=== PATIENT | male | born 1985 | race Two or more races ===

== ENCOUNTER 2022-12-18 14:56 | Emergency (ER) | payer OTHER ==
[~2022-12-18] VITALS: Ht 177.8 cm; Wt 114.8 kg
[2022-12-18 15:15] LABS: Urine WBC None Seen /hpf (0 - 3)
[2022-12-18 15:32] LABS: Urine Bacteria NONE SEEN /hpf (None Seen); Urine Blood Negative /uL (Negative); Urine Clarity Clear (Clear); Urine Color Yellow (Yellow); Urine Hyaline Cast FEW /lpf (0 - 2); Urine Mucus FEW (None Seen); Urine Protein, UAD 1+ (Negative); Urine Specific Gravity 1.018 (1.001-1.035)
[2022-12-18 15:42] LABS: Basophils # (auto) 0 10 ^3/uL (0-0.2); Basophils % (auto) 0.7 % (0.0-2.0); Eosinophils # (auto) 0.1 10 ^3/uL (0-0.8); Hematocrit 39.8 % (41.0-53.0); Hemoglobin 13.3 g/dL (13.5-17.5); Lymphocytes # (auto) 1.2 10 ^3/uL (0.4-5.4); Lymphocytes % (auto) 18.6 % (10.0-50.0); Mean Corpuscular Hemoglobin 27.8 pg (28.0-32.0); Mean Corpuscular Hgb Conc. 33.5 g/dL (32.0-36.0); Monocytes # (auto) 0.8 10 ^3/uL (0-1.3); Monocytes % (auto) 12.2 % (0.0-12.0); Neutrophils # (auto) 4.4 10 ^3/uL (1.6-8.6); Neutrophils % (auto) 67.5 % (37.0-80.0); Nucleated Red Blood Cells % 0.2 %; Red Cell Distribution Width 14.9 % (11.8-14.3); White Blood Cell 6.5 10^3/uL (4.4-10.8)
[2022-12-18 15:53] VITALS: BP 127/43; PULSE 103; RESP 18; TEMP 98.3; O2SAT 95
[2022-12-18 16:03] LABS: Alanine Aminotransferase 34 U/L (7-40); Albumin 4.2 g/dL (3.2-4.8); Alkaline Phosphatase 80 U/L (46-116); Anion Gap 11 (5-15); Aspartate Aminotransferase 21 U/L (13-40); Bilirubin, Total 1.2 mg/dL (0.2-1.0); Calcium 9.3 mg/dL (8.7-10.4); Carbon Dioxide 26 mmol/L (20-30); Chloride 100 mmol/L (98-107); Glucose 99 mg/dL (74-106); Lipase 62 U/L (12-53); Potassium 3.7 mmol/L (3.5-5.1); Sodium 137 mmol/L (136-145); Total Protein 7.7 g/dL (5.7-8.2)
[2022-12-18 16:09] LABS: BUN/Creatinine Ratio 4.6 (10.0-20.0); Blood Urea Nitrogen < 5 mg/dL (9-23)
[2022-12-18] MEDS ORDERED: PANTOPRAZOLE 40 MG/10 ML VIAL INJ IV ONE (17:00)
[2022-12-18] MEDS ORDERED: SODIUM CHLORIDE 0.9% 1,000 ML IV ONE (17:00)
[2022-12-18] MEDS ORDERED: HYDROcodone-ACET 10/325MG TAB PO ONE (18:00)
== END 2022-12-18 18:06 | disposition home or self-care (01) ==
LOC: ER 14:56
DX: K80.20 Calculus of gallbladder without cholecystitis without obstruction (principal); E86.0 Dehydration; D35.01 Benign neoplasm of right adrenal gland
CPT/HCPCS: 36415; 74176; 80053; 81001; 83690; 85025; 96361; 96374; 99285; C9113; J7030

== ENCOUNTER 2022-12-23 14:53 | Inpatient (IN) | payer OTHER ==
[~2022-12-23] VITALS: Ht 177.8 cm; Wt 114.0 kg
[2022-12-23 01:33] VITALS: PULSE 72; RESP 19; O2SAT 98
[2022-12-23 15:27] LABS: Basophils # (auto) 0.1 10 ^3/uL (0-0.2); Basophils % (auto) 0.7 % (0.0-2.0); Eosinophils # (auto) 0.1 10 ^3/uL (0-0.8); Eosinophils % (auto) 0.8 % (0.0-7.0); Hematocrit 39.2 % (41.0-53.0); Hemoglobin 13.2 g/dL (13.5-17.5); Lymphocytes # (auto) 1.5 10 ^3/uL (0.4-5.4); Lymphocytes % (auto) 19.2 % (10.0-50.0); Mean Corpuscular Hgb Conc. 33.6 g/dL (32.0-36.0); Mean Corpuscular Volume 83.5 fL (80.0-100.0); Monocytes % (auto) 13.1 % (0.0-12.0); Neutrophils # (auto) 5.1 10 ^3/uL (1.6-8.6); Neutrophils % (auto) 66.2 % (37.0-80.0); Red Blood Cells 4.69 10^6/uL (4.5-5.90); Red Cell Distribution Width 14.9 % (11.8-14.3); White Blood Cell 7.7 10^3/uL (4.4-10.8)
[2022-12-23 15:31] LABS: Urine Bacteria NONE SEEN /hpf (None Seen); Urine Blood TRACE /uL (Negative); Urine Clarity Clear (Clear); Urine Color Yellow (Yellow); Urine Mucus FEW (None Seen); Urine Protein, UAD 1+ (Negative); Urine Specific Gravity 1.017 (1.001-1.035); Urine WBC 1 /hpf (0 - 3); Urine pH 6.5 (5.0-8.0)
[2022-12-23 15:46] LABS: Alanine Aminotransferase 30 U/L (7-40); Albumin 4.4 g/dL (3.2-4.8); Alkaline Phosphatase 87 U/L (46-116); Anion Gap 9 (5-15); Aspartate Aminotransferase 30 U/L (13-40); BUN/Creatinine Ratio 5.1 (10.0-20.0); Bilirubin, Total 1.3 mg/dL (0.2-1.0); Blood Urea Nitrogen 5 mg/dL (9-23); Calcium 9.6 mg/dL (8.7-10.4); Carbon Dioxide 28 mmol/L (20-30); Chloride 97 mmol/L (98-107); Glucose 98 mg/dL (74-106); Potassium 3.6 mmol/L (3.5-5.1); Sodium 134 mmol/L (136-145); Total Protein 8.4 g/dL (5.7-8.2)
[2022-12-23] MEDS ORDERED: IOHEXOL 300 MG/ML 100ML BOTTLE IJ ONE (17:49)
[2022-12-23] MEDS ORDERED: MORPHINE SULFATE 4 MG/ML SYR/VIAL IV ONE (19:45)
[2022-12-23] MEDS ORDERED: ONDANSETRON HCL 4 MG/2 ML VIAL IV ONE (19:45)
[2022-12-23] MEDS ORDERED: PANTOPRAZOLE 40 MG/10 ML VIAL INJ IV ONE (21:30)
[2022-12-23] MEDS ORDERED: SODIUM CHLORIDE 0.9% 1,000 ML IV ONE (21:30)
[2022-12-23] MEDS ORDERED: diphenhdrAMINE HCL 50 MG/1 ML VL IV ONE (21:45)
[2022-12-23] MEDS ORDERED: diphenhdrAMINE HCL 50 MG/1 ML VL ONE (21:47)
[2022-12-23] MEDS ORDERED: ONDANSETRON HCL 4 MG/2 ML VIAL IV PRN (22:15)
[2022-12-23] MEDS ORDERED: TEMAZEPAM 15 MG CAP PO PRN (22:15)
[2022-12-23] MEDS ORDERED: HYDROcodone-ACET 5/325MG TAB PO PRN (22:15)
[2022-12-23 22:55] VITALS: PULSE 82; RESP 21; O2SAT 90
[2022-12-24] VITALS (9 sets, daily range): BP systolic 105–121; BP diastolic 63–70; PULSE 72–82; RESP 16–19; TEMP 97.6–99.5; O2SAT 93–100
[2022-12-24] MEDS: diphenhdrAMINE HCL 25 MG CAP PO PRN ×2 (01:35→09:27)
[2022-12-24] MEDS ORDERED: HYDR-4798 PO (01:42)
[2022-12-24] MEDS: MORPHINE SULFATE INJ 2 MG/ml SYRG IV PRN ×3 (01:43→17:20)
[2022-12-24 05:54] LABS: Basophils # (auto) 0 10 ^3/uL (0-0.2); Basophils % (auto) 0.5 % (0.0-2.0); Eosinophils # (auto) 0.1 10 ^3/uL (0-0.8); Eosinophils % (auto) 1.9 % (0.0-7.0); Hematocrit 33.3 % (41.0-53.0); Hemoglobin 11.2 g/dL (13.5-17.5); Lymphocytes # (auto) 1.6 10 ^3/uL (0.4-5.4); Lymphocytes % (auto) 29.9 % (10.0-50.0); Mean Corpuscular Hemoglobin 27.9 pg (28.0-32.0); Mean Corpuscular Hgb Conc. 33.6 g/dL (32.0-36.0); Monocytes # (auto) 0.9 10 ^3/uL (0-1.3); Monocytes % (auto) 16.6 % (0.0-12.0); Neutrophils # (auto) 2.8 10 ^3/uL (1.6-8.6); Neutrophils % (auto) 51.1 % (37.0-80.0); Red Blood Cells 4.01 10^6/uL (4.5-5.90); Red Cell Distribution Width 14.7 % (11.8-14.3); White Blood Cell 5.4 10^3/uL (4.4-10.8)
[2022-12-24 06:10] LABS: Alanine Aminotransferase 22 U/L (7-40); Albumin 3.6 g/dL (3.2-4.8); Alkaline Phosphatase 65 U/L (46-116); Anion Gap 8 (5-15); Aspartate Aminotransferase 22 U/L (13-40); BUN/Creatinine Ratio 6.3 (10.0-20.0); Bilirubin, Total 1.1 mg/dL (0.2-1.0); Blood Urea Nitrogen 5 mg/dL (9-23); Carbon Dioxide 29 mmol/L (20-30); Chloride 101 mmol/L (98-107); Glucose 89 mg/dL (74-106); Potassium 3.7 mmol/L (3.5-5.1); Sodium 138 mmol/L (136-145); Total Protein 6.9 g/dL (5.7-8.2)
[2022-12-24 11:43] LABS: Amphetamine Screen, Urine Neg (NEGATIVE)
[2022-12-24 11:44] LABS: Barbiturate Scree,Urine Neg (NEGATIVE); Benzodiazephine Screen, Urine Neg (NEGATIVE); Cannabinoid Screen, Urine Neg (NEGATIVE); Cocaine Screen, Urine Neg (NEGATIVE); Opiate Scree,Urine Pos (NEGATIVE); Phencyclidine Screen, Urine Neg (NEGATIVE)
[2022-12-24 11:59] LABS: Magnesium 1.9 mg/dL (1.6-2.6)
[2022-12-24] MEDS ORDERED: METF-929 PO (12:54)
[2022-12-24] MEDS ORDERED: CAR125T OR (12:54)
[2022-12-24] MEDS ORDERED: INSUINJ37 SC (12:54)
[2022-12-24] MEDS ORDERED: ALBUAER3 IN (12:54)
[2022-12-24] MEDS ORDERED: TRAZ-227 PO (12:54)
[2022-12-24] MEDS ORDERED: LOSA100T58 PO (12:54)
[2022-12-24] MEDS ORDERED: SIMV10TA20 PO (12:54)
[2022-12-24] MEDS ORDERED: NIFE1TAB36 PO (12:54)
[2022-12-24] MEDS ORDERED: ERGO400T PO (12:54)
[2022-12-24] MEDS: ERGOCALCIFEROL 50,000 UNIT(1.25MG) CAP PO SCH ×2 (21:34→22:46)
[2022-12-25 05:00] VITALS: BP 150/67; PULSE 85; RESP 18; TEMP 97.7; O2SAT 96
[2022-12-25] MEDS: MORPHINE SULFATE INJ 2 MG/ml SYRG IV PRN (06:28)
[2022-12-25 06:47] LABS: Basophils # (auto) 0 10 ^3/uL (0-0.2); Basophils % (auto) 0.6 % (0.0-2.0); Eosinophils # (auto) 0.1 10 ^3/uL (0-0.8); Eosinophils % (auto) 3.1 % (0.0-7.0); Hematocrit 36.1 % (41.0-53.0); Hemoglobin 11.9 g/dL (13.5-17.5); Lymphocytes # (auto) 1.1 10 ^3/uL (0.4-5.4); Lymphocytes % (auto) 25.5 % (10.0-50.0); Mean Corpuscular Hemoglobin 27.4 pg (28.0-32.0); Mean Corpuscular Volume 83.1 fL (80.0-100.0); Monocytes # (auto) 0.7 10 ^3/uL (0-1.3); Monocytes % (auto) 16.4 % (0.0-12.0); Neutrophils # (auto) 2.4 10 ^3/uL (1.6-8.6); Neutrophils % (auto) 54.4 % (37.0-80.0); Nucleated Red Blood Cells % 0.1 %; Red Blood Cells 4.34 10^6/uL (4.5-5.90); Red Cell Distribution Width 14.7 % (11.8-14.3); White Blood Cell 4.3 10^3/uL (4.4-10.8)
[2022-12-25 07:07] LABS: % Iron Saturation 13.9 % (20-55)
[2022-12-25 07:15] LABS: Alanine Aminotransferase 26 U/L (7-40); Albumin 3.6 g/dL (3.2-4.8); Alkaline Phosphatase 80 U/L (46-116); Anion Gap 11 (5-15); Aspartate Aminotransferase 20 U/L (13-40); BUN/Creatinine Ratio 7.5 (10.0-20.0); Bilirubin, Total 0.9 mg/dL (0.2-1.0); Blood Urea Nitrogen 6 mg/dL (9-23); Calcium 8.8 mg/dL (8.7-10.4); Carbon Dioxide 29 mmol/L (20-30); Chloride 98 mmol/L (98-107); Glucose 83 mg/dL (74-106); Lipase 53 U/L (12-53); Potassium 3.9 mmol/L (3.5-5.1); Sodium 138 mmol/L (136-145); Total Protein 6.8 g/dL (5.7-8.2)
[2022-12-25 08:00] VITALS: PULSE 80; RESP 20; O2SAT 98
[2022-12-25 09:00] VITALS: BP 126/81; PULSE 86; RESP 16; TEMP 99; O2SAT 97
[2022-12-25] MEDS ORDERED: IRON SUCROSE COMPLEX 200 MG in SODIUM CHL 0.9% 100 ML IV SCH (12:00)
[2022-12-25] MEDS ORDERED: SODIUM FERR GLUC 125 MG in NS 100 ML IV SCH (12:00)
[2022-12-25] MEDS ORDERED: IOHEXOL 300 MG/ML 100ML BOTTLE IJ ONE (12:16)
[2022-12-25 13:00] VITALS: BP 105/69; PULSE 77; RESP 16; TEMP 98.2; O2SAT 95
[2022-12-25 17:00] VITALS: BP 117/71; PULSE 75; RESP 14; TEMP 98.4; O2SAT 95
== END 2022-12-25 19:51 | disposition left against medical advice (07) | DRG 393 ==
LOC: ER 14:53 → OVERFLOW 22:06 → CENTRAL 12-24 00:50
PROVIDERS: ADMIT Internal Medicine Geriatric Medicine; ATTEND Internal Medicine Geriatric Medicine
DX: K55.059 Acute (reversible) ischemia of intestine, part and extent unspecified (principal); K85.90 Acute pancreatitis without necrosis or infection, unspecified; D64.9 Anemia, unspecified; E66.01 Morbid (severe) obesity due to excess calories; E55.9 Vitamin D deficiency, unspecified; Z68.36 Body mass index [BMI] 36.0-36.9, adult; R10.12 Left upper quadrant pain; Z53.21 Procedure and treatment not carried out due to patient leaving prior to being seen by health care provider
CPT/HCPCS: 36415; 74177; 76705; 80053; 80061; 80307; 81001; 82140; 82306; 82607; 82746; 83036; 83540; 83550; 83615; 83690; 83735; 84443; 85025; 87081; 96374; 96375; C9113; G0378; J2405